=== PATIENT | female | born 1985 | race American Indian/Alaskan Native ===

== ENCOUNTER 2018-12-25 08:04 | Emergency (ER) | payer SELFPAY ==
[2018-12-25 08:13] VITALS: BP 105/72
[2018-12-25 08:43] LABS: Basophils # (Auto) 0.1 K/mm3 (0.0-0.1); Basophils % (Auto) 0.9 % (0.0-1.8); Eosinophils # (Auto) 0.1 K/mm3 (0.0-0.4); Eosinophils % (Auto) 2.5 % (0.0-4.3); Hematocrit 34.7 % (30.3-42.9); Hemoglobin 11.6 gm/dl (10.1-14.3); Lymphocytes # (Auto) 1.9 K/mm3 (1.2-5.4); Lymphocytes % (Auto) 33.7 % (13.4-35.0); Mean Corpuscular HGB Conc 33 % (30-34); Mean Corpuscular Volume 84 fl (79-97); Monocytes # (Auto) 0.5 K/mm3 (0.0-0.8); Monocytes % (Auto) 8.3 % (0.0-7.3); Platelet Count 207 K/mm3 (140-440); Red Blood Count 4.12 M/mm3 (3.65-5.03); Red Cell Distribution Width 12.7 % (13.2-15.2)
[2018-12-25 09:09] LABS: Bilirubin,Urine NEG (Negative); Blood,Urine SM (Negative); Color,Urine Straw (Yellow); Protein,Urine <15 mg/dL mg/dL (Negative); Urobilinogen,Urine < 2.0 mg/dL (<2.0)
--- NOTE | 2018-12-25 09:13 | Emergency Department Report ---
HPI - General Chief Complaint: Vaginal Bleeding Time Seen by Provider: 12/25/18 08:23 - HPI HPI: 33-year-old -Luxembour[place] female presents to the emergency department with a complaint of sharp pelvic cramping, vaginal spotting, since last night, while p regirenat. With this , the patient is with 1 live child. Her last menstrual cycle was October 29. She says she found out she was about one month ago with both a home test and confirmed at an urgent care or clinic. She is not currently taking vitamins. No past medical history. She has her first OB appointment with [facility] on 12/31/18. She has not taken anything for her symptoms prior to arrival today. ED Past Medical Hx - Past Medical History Hx Hypertension: Yes - Surgical History Past Surgical History?: No - Social History Smoking Status: Never Smoker Substance Use Type: None - Medications Home Medications: Home Medications Medication Instructions Recorded Confirmed Last Taken Type Vit-Fe Fumar-FA [ 1 tab PO QDAY #30 tablet 12/25/18 Unknown Rx Vitamin] ED Review of Systems ROS: Stated complaint: VAGINAL BLEED/PAIN 8 WKS PREG Other details as noted in HPI Comment: All other systems reviewed and negative Constitutional: denies: chills, fever Gastrointestinal: abdominal pain. denies: vomiting Genitourinary: other (vaginal bleeding). denies: dysuria, discharge Musculoskeletal: denies: back pain, arthralgia Skin: denies: rash, lesions Physical Exam - Physical Exam Vital Signs: Vital Signs 12/25/18 08:11 Temperature 98.2 F Pulse Rate 76 Respiratory 18 Rate Blood Pressure 105/72 O2 Sat by Pulse 100 Oximetry Physical Exam: GENERAL: The patient is well-developed well-nourished. HENT: Normocephalic. Atraumatic. Patient has moist mucous membranes. EYES: Extraocular motions are intact. NECK: Supple. Trachea is midline. CHEST/LUNGS: Clear to auscultation. There is no respiratory distress noted. HEART/CARDIOVASCULAR: Regular. There is no tachycardia. There is no murmur. ABDOMEN: Abdomen is soft. Unable to reproduce lower abdominal or pelvic cramping to palpation. No guarding. Patient has normal bowel sounds. There is no abdominal distention. SKIN: Skin is warm and dry. NEURO: The patient is awake, alert, and oriented. The patient is cooperative. The patient has no focal neurologic deficits. Normal speech. MUSCULOSKELETAL: There is no tenderness or deformity. There is no evidence of acute injury. ED Course Vital Signs 12/25/18 08:11 Temperature 98.2 F Pulse Rate 76 Respiratory 18 Rate Blood Pressure 105/72 O2 Sat by Pulse 100 Oximetry ED Medical Decision Making - Lab Data Result diagrams: 12/25/18 08:28 - Radiology Data Radiology results: report reviewed OB Ultrasound HISTORY: , vag bleeding, pelvic pain. TECHNIQUE: Grayscale and color Doppler imaging performed. COMPARISON: None FINDINGS: Uterus measures 12.0 x 5.7 x 6.2 cm with a single intrauterine gestation demonstrating a crown-rump length of 1.5 cm. This correlates with an EGA of 7 weeks and 6 days. Mean sac diameter is 4.9 cm which correlates with an EGA of 10 weeks and 4 days. The overall EGA is 19 weeks and 2 days with estimated delivery date of 07/28/2019. A small yolk sac is also present. There is a thin subchorionic hemorrhage measuring 2 mm in thickness and 4.3 cm in length. The ovaries both appear normal with normal blood flow. No pelvic free fluid id entified. IMPRESSION: 1. Single viable intrauterine gestation as above. 2. Thin subchorionic hemorrhage. - Medical Decision Making Patient presents with some pelvic cramping and some very mild vaginal bleeding or spotting while . She had a healthy beta-HCG. Her blood type is O+ and she does not require the Rhogam shot. Ultrasound shows a single live intra uterine gestation at about 7 weeks and 6 days. We discussed the diagnosis of threatened miscarriage but she understands that, at the time of the ultrasound, the patient is alive and well. She was started on vitamins. She has an appointment with her MANAGER [employer] on 12/31. She will return to the emergency Department with any worsening of her symptoms or any acute distress. - Differential Diagnosis , threatened miscarriage, spontaneous miscarriage, fibroids Critical Care Time: No Critical care attestation.: If time is entered above; I have spent that time in minutes in the direct care of this critically ill patient, excluding procedure time. ED Disposition Clinical Impression: Threatened miscarriage Qualifiers: Weeks of gestation: less than 8 weeks Qualified Code(s): Z3A.01 - Less than 8 weeks gestation of Disposition: DC-01 TO HOME OR SELFCARE Is pt being admited?: No Condition: Stable Instructions: Threatened Miscarriage (ED), (ED) Additional Instructions: Please follow-up with your MANAGER [employer] in the next few days. I am starting you on vitamins. You can take Tylenol every 6 hours, using weight-based dosing on the back of the bottle, as needed for any discomfort. Otherwise do not take any other medications that are not prescribed by a physician. Return to the emergency Department with any worsening of her symptoms, including any increased vaginal bleeding, increased pelvic pains, or with any acute distress. Prescriptions: Vit-Fe Fumar-FA [ Vitamin] 1 tab PO QDAY #30 tablet Referrals: OBGYN, Your [Other] - 2-3 Days Forms: Work/School Release Form(ED) Time of Disposition: 10:23
--- NOTE | 2018-12-25 10:01 | Ultrasound Report ---
OB Ultrasound HISTORY: , vag bleeding, pelvic pain. TECHNIQUE: Grayscale and color Doppler imaging performed. COMPARISON: None FINDINGS: Uterus measures 12.0 x 5.7 x 6.2 cm with a single intrauterine gestation demonstrating a cr own-rump length of 1.5 cm. This correlates with an EGA of 7 weeks and 6 days. Mean sac diameter is 4. 9 cm which correlates with an EGA of 10 weeks and 4 days. The overall EGA is 19 weeks and 2 days with estimated delivery date of 07/28/2019. A small yolk sac is also present. There is a thin subchorionic hemorrhage measuring 2 mm in thickness and 4.3 cm in length. The ovaries both appear normal with normal blood flow. No pelvic free fluid identified. IMPRESSION: 1. Single viable intrauterine gestation as above. 2. Thin subchorionic hemorrhage. Signer Name: Carlos Solano MD Signed: 12/25/2018 9:56 AM Workstation Name: [id number]
== END 2018-12-25 10:40 | disposition home or self-care (01) ==
LOC: ED 08:04
DX: O20.0 Threatened abortion (principal); O16.1 Unspecified maternal hypertension, first trimester; Z3A.01 Less than 8 weeks gestation of pregnancy; Z79.899 Other long term (current) drug therapy
CPT/HCPCS: 36415; 76801; 81001; 84702; 85025; 86900; 86901; 99284